=== PATIENT | female | born 1955 | race Caucasian/White ===

== ENCOUNTER 2016-06-03 13:11 | Inpatient (IN) ==
[2016-06-03] MEDS ORDERED: TYLENOL PO PRN (14:25)
[2016-06-03 14:50] LABS: MANUAL DIFF NEEDED? NO
[2016-06-03 14:52] LABS: BASO% 0.3 % (0.0-0.8); EOS# 0.11 X1000 (0.0-0.7); EOS% 0.8 % (0.0-10.0); HEMATOCRIT 38.3 % (37.0-47.0); IMM GRAN# 0.08 X1000 (0.0-0.04); IMM GRAN% 0.6 % (0.0-0.5); LYMPH# 2.32 X1000 (1.2-3.4); LYMPH% 16.9 % (20.5-51.1); MCH 31.2 PG (27-31); MCHC 33.9 g/dL (33-37); MCV 91.8 FL (81-99); MONO# 1.29 X1000 (0.11-0.59); MONO% 9.4 % (1.7-9.3); MPV 11.2 FL (7.4-10.4); PLT 296 X1000 (130-400); RBC 4.17 XMIL (4.2-5.4)
[2016-06-03 15:09] LABS: URINE CULTURE NEEDED? NO; URINE MICRO REVIEW NEEDED? NO; URINE SOURCE CLEAN CATCH
[2016-06-03 15:13] LABS: BILIRUBIN URINE NEGATIVE (NEGATIVE); BLOOD URINE TRACE (NEGATIVE); COLOR YELLOW; GLUCOSE URINE NEGATIVE (NEGATIVE); LEUKOCYTES URINE NEGATIVE (NEGATIVE); NITRITE URINE NEGATIVE (NEGATIVE); PH URINE 5.5; PROTEIN URINE TRACE mg/dL (NEGATIVE); SP GRAVITY URINE 1.027; TURBIDITY URINE HAZY (CLEAR); UROBILINOGEN URINE NORMAL (NORMAL)
[2016-06-03 15:15] LABS: UR EPITHELIAL CELLS <10 /HPF (<10); URINE BACTERIA NEGATIVE /HPF; URINE RBC <10 /HPF (<10); URINE WBC <10 /HPF (<10)
--- NOTE | 2016-06-03 15:23 | HISTORY AND PHYSICAL ---
SUBJECTIVE: Swelling in head and face with headache and chest wall pain for 3 weeks. HISTORY OF PRESENT ILLNESS: The patient is a 60-year-old white female with swelling that was presumed angioneurotic edema. She has been treated as an outpatient with epinephrine, steroids, antihistamines with [facility]. The swelling did go down temporarily but came right back. She has been having headache with this but says she has had these types of headaches in the past when she did not have angioneurotic edema. She has had a little chest pain as well. She is tender to palpation over the chest wall consistent with a costochondritis. It is interesting that she had an infected tooth about 3 weeks ago, was placed on ampicillin, the tooth was pulled. She has not had a reaction to penicillin in the past or any other medication that she is aware of but her mother does have a penicillin allergy. She did not however develop any hives or urticaria with this but just edema. She was not on any regular medications and has not been on an CIRILO inhibitor. She is not sure about whether she has been taking any nonsteroidal anti-inflammatory drugs during that time. She does not feel well. She has a headache this time. She apparently has had some wheezing at home mostly at night. Her reports this and he is a physician. She has also been on some antihistamine both Benadryl and Claritin off and on during the last 3 weeks. She was feeling worse today and earlier this morning felt like her throat was closing off but she feels better now and her oxygen saturation is normal on room air. She has not been sleeping well and I felt that since this had been treated for 3 weeks without success, even though she had responded a little bit to the epinephrine yesterday [facility], that she should be admitted to the hospital especially considering that she has had some bronchospasm and perhaps some laryngeal spasm. I considered doing a CT scan of her neck. She is not having any discomfort right now so we decided to hold off on that. It is interesting that her noticed that just recently she has broken out in just a little angiomas on her chest and she does have these. She has not been known to have any liver disease and she had a chemistry profile a couple of weeks ago before she had an EGD and apparently it was normal. PAST HISTORY: Has had a tonsillectomy and a hysterectomy. She has 4 biological children all in good health. None of them have shown any angioneurotic edema. REVIEW OF SYSTEMS: Neurological: Has been having some headache off and on but has had this before she had angioneurotic edema. Denies seizures, visual problems, hearing problems. Pulmonary: Has had some cough and wheezing especially at night. Has had some chest discomfort that I believe is probably chest wall pain. Cardiovascular: Denies chest pains consistent with cardiac diseases and no heart palpitations, PND, orthopnea. No pedal edema. All the swelling that she has had has been from the waist up. : Has had no problems with urination. Musculoskeletal: Has had some chest wall pain. She is tender over the 2nd intercostal space on the left consistent with a costochondritis. Endocrine: Has had no thyroid problems, diabetes or pituitary problems. Psychiatric: Denies any long-term depression, anxiety. PHYSICAL EXAMINATION: VITAL SIGNS: Temperature is 97.4 degrees Fahrenheit, pulse 75 and regular, respirations 14, blood pressure 122/49, oxygen saturation was 99%. Weight is 173 pounds 8 ounces. Height 5 feet 1 inch tall. HEENT: She is very swollen in her face and neck, not so much in her arms or hands. Even with this swelling though she says she has not had any itching with this. TMs within normal limits. Fundi not seen well. Throat clear. She is missing a lower molar tooth that she had removed recently. NECK: Supple without thyromegaly, lymphadenopathy, or carotid bruits. LUNGS: Clear to auscultation and percussion without rhonchi, rales, or wheezes though she does tell me she has had some wheezing at night. HEART: Regular rate and rhythm without murmurs, gallops, or friction rubs. ABDOMEN: Soft. Active bowel sounds, no organomegaly or tenderness. NEUROLOGICAL: Cranial nerves 2-12 intact grossly. Sensory and motor intact. Reflexes 1+ all. PELVIC EXAM: Deferred. RECTAL EXAM: Deferred. BREAST EXAM: Deferred. INTEGUMENT: Should be noted on integument exam that she does have some spider angiomas on her chest and her tells me that those are new. DIAGNOSTIC DATA: Chest x-ray still pending and of course, if we found anything suspicious there we would do further investigation. IMPRESSION AND PLAN: We are assuming this is angioneurotic edema even though she has not had any itching as the antihistamines have helped at times and it would go down and the epinephrine helped a good bit yesterday but was just temporary. Other causes of edema would be much less likely as they would not necessarily be responsive to epinephrine though we do not have any history of hereditary angioneurotic edema I will do a C1 complement test and function tests on C1 and C4. I will go ahead and start her on IV Solu-Medrol, Vistaril and for her headache I will give her low dose of Dilaudid. I am awaiting lab work. If liver enzymes are elevated so they were more concerned about a liver problem then we will investigate accordingly but she had been seen by a optical glass etcher recently. cc: Shahid Hernadez Jr, MD
[2016-06-03 15:24] LABS: AGAP 11; ALBUMIN 3.9 g/dL (3.5-5.0); ALKALINE PHOSPHATASE 86 U/L (32-104); BUN 23 mg/dL (8-22); CALCIUM 8.1 mg/dL (8.8-10.2); CHLORIDE 95 mmol/L (98-107); COSMO 269; GOT 9 U/L (10-30); GPT 8 U/L (10-36); POTASSIUM 3.7 mmol/L (3.5-5.1); SODIUM 133 mmol/L (136-145); TCO2 27 mmol/L (25-35); TOTAL BILIRUBIN 0.18 mg/dL (0.20-1.00); TOTAL PROTEIN 6.6 g/dL (6.3-8.3)
[2016-06-03] MEDS: SOLU-MEDROL IV SCH ×2 (15:28→23:20)
[2016-06-03] MEDS: DILAUDID IV PRN (15:29)
[2016-06-03 15:53] LABS: SED RATE 12 mm/hr (0-20)
--- NOTE | 2016-06-03 16:45 | Diag Imaging Result Document ---
PROCEDURE NAME: CHEST-PORTABLE - 06/03/2016 CHEST 2 VIEWS: COMPARISON: No comparison exam. FINDINGS: Heart size is normal. There is prominence of the right hilum. There is a questionable nodular opacity at the left mid to upper lung versus artifact related to overlying rib. There is no other consolidation, pleural effusion, or pneumothorax identified. IMPRESSION: 1. Fullness of right hilum. The possibility of mass lesion or adenopathy at this location cannot be excluded. 2. Questionable nodular opacity at mid to upper left lung. 3. CT thorax is recommended for further evaluation.
[2016-06-03] MEDS: HYDROXYZINE PO SCH (17:42)
[2016-06-03] MEDS ORDERED: AYR NASAL SPRAY NAS PRN (22:28)
[2016-06-04] MEDS: SOLU-MEDROL IV SCH ×2 (06:43→18:19)
[2016-06-04] MEDS: DILAUDID IV PRN ×2 (06:49→13:09)
--- NOTE | 2016-06-04 09:24 | Diag Imaging Result Document ---
PROCEDURE NAME: THORAX/ABDOMEN/PELVIS - 06/04/2016 CT CHEST WITH INTRAVENOUS CONTRAST: FINDINGS: There is an irregular mass in the mid left upper lobe measuring 1.7 x 2.4 cm. There are markedly enlarged mediastinal and hilar lymph nodes. There is circumferential compression with narrowing of the right main pulmonary artery. There are small bilateral pleural effusions as well as a small anterior pericardial effusion. The pericardial effusion measures 11 mm anteriorly. The right pleural effusion measures 2.3 cm posteriorly and inferiorly in the midline whereas the left effusion measures 8 mm. No cardiomegaly. No thoracic aortic aneurysm or dissection. There is a calcified granuloma in the left upper lobe and there is a calcified left hilar lymph nodes. No bronchiectasis. No consolidation. There is a small amount of basilar atelectasis. There is compression upon the SVC. IMPRESSION: 1. Left upper lobe mass with mediastinal and hilar adenopathy consistent with a primary malignancy. 2. Small bilateral pleural effusions with a pericardial effusion. 3. Compressed SVC and right main pulmonary artery. A preliminary report was given at 8:59 a.m. PROCEDURE NAME: THORAX/ABDOMEN/PELVIS - 06/04/2016 CT ABDOMEN AND PELVIS WITH INTRAVENOUS CONTRAST: FINDINGS: No focal hepatic lesion. Normal spleen, pancreas, gallbladder, and adrenal glands. Normal enhancement of the kidneys. No hydronephrosis. No aortic aneurysm. No bowel obstruction. No inflammation about the cecum. No abscess. The urinary bladder is moderately distended and appears normal. The uterus has been removed. No pelvic mass. There is a fat-filled left inguinal hernia. No bowel loop within this. There are small mesenteric lymph nodes. IMPRESSION: No abdominal or pelvic metastases. A preliminary report was given at 9:01 p.m. [facility]
[2016-06-04] MEDS: HYDROXYZINE PO SCH (09:53)
--- NOTE | 2016-06-04 11:49 | PROGRESS NOTE ---
DATE: 06/04/2016 SUBJECTIVE: The patient feels about the same. She did sleep a little better yesterday. The swelling has not gotten any better. OBJECTIVE: Vital Signs: Blood pressure is 137/72, respirations 20, pulse 81, temperature 98.6 degrees Fahrenheit. HEENT: She is normocephalic. EOMs intact. PERRLA. Throat clear. Lungs: Fairly clear to auscultation and percussion without rhonchi, rales, or wheezes at this time. Heart: Regular rate and rhythm without murmurs, gallops, or friction rubs. Abdomen: Soft. Active bowel sounds. No organomegaly or tenderness. Neurological: Examination is intact grossly. The patient does still have tremendous swelling of her arms, neck, and face. Laboratory Data: The chest x-ray showed a left upper lobe mass and some fullness in the right hilar area. CT scan was done. CT scan of the abdomen showed no signs of metastatic disease. There is a fat-filled left inguinal hernia present that is asymptomatic. For some reason, the dictation on the chest part of the CT was not done at the same time as the abdominal CT. The called-in report was for a left upper lobe mass and that is about all I have on this information at this time. Hopefully, with a more detailed report, we will know about right hilar fullness. My suspicion is that she has a superior vena caval syndrome and that is why she is not responding to medications with her swelling. There were also other findings that may be indicative of this. Hopefully, the CT scan will provide further information. It should be noted that she is a prior smoker but only quit about a year ago. She was smoking about a half a pack a day. ASSESSMENT: 1. 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 The fact that she responded to some adrenaline as an outpatient would have indicated that maybe this was angioneurotic edema but if she has that, I think she has both problems. I think the bigger problem is probably severe vena caval syndrome. 2. Left upper lobe mass. 3. Right hilar fullness. PLAN: We will get oncology and pulmonology involved. We will give her some Lasix. cc: Shahid Hernadez Jr, MD
[2016-06-04] MEDS: LASIX IV SCH (13:09)
--- NOTE | 2016-06-04 17:06 | CONSULTATION ---
DATE OF CONSULTATION: 06/04/2016 HISTORY OF PRESENT ILLNESS: Patient seen in initial consultation at the request of Dr. Hernadez for SVC syndrome. HISTORY OF PRESENT ILLNESS: Ms. Pro is a 60-year-old, woman who has been having facial swelling, headaches, nighttime wheezing and throat tightness over the last 3 weeks. She was seen in urgent care yesterday and treated for presumed angioedema with epinephrine, steroids, antihistamines with temporary improvement. Her headache is worse if she bends over. Her ear feels like it is going to explode. She has not been sleeping well due to nighttime shortness of breath. PAST MEDICAL HISTORY: Headaches. Facial swelling. Seasonal allergies. Insomnia. PAST SURGICAL HISTORY: Tonsillectomy. Hysterectomy. ALLERGIES: No known drug allergies. MEDICATIONS: Reviewed per chart. FAMILY MEDICAL HISTORY: No family history of angioedema. SOCIAL HISTORY: Patient is . Lives with her . No illicit drug use. The patient has 4 children who are healthy. REVIEW OF SYSTEMS: Pertinent positives and negatives as per HPI. All other review of systems are negative. PHYSICAL EXAMINATION: Vital signs: Temperature 98.6 degrees, pulse 81, respiratory rate 20, blood pressure 137/72, O2 saturation 91% on room air. General: This is a chronically ill- appearing, woman in no acute distress. She has multiple family members at the bedside. Eyes: Sclerae are anicteric. Cardiovascular: Regular rate and rhythm. Normal S1, S2. No murmurs, rubs, or gallops. Pulmonary: Lungs have coarse bilateral breath sounds without wheezes, rales or rhonchi. Gastrointestinal: Abdomen is soft, nontender, nondistended with normoactive bowel sounds. Extremities: No clubbing, cyanosis, or edema. ENT: Facial swelling with jugular venous distention bilaterally noted. Lymphatics: No palpable adenopathy. Neurologic: Alert and oriented x3. No focal deficits. Gait not assessed as the patient is in a hospital bed. LABORATORY DATA: White count 13.7, hemoglobin 13, platelet count 296,000. Sodium 133, calcium 8.1, BUN 23, creatinine 0.7, glucose 83, AST 9, ALT 8, alkaline phosphatase 86. IMAGING: CT chest, abdomen and pelvis showed right hilar fullness with preliminary report showing a 2 cm left upper lobe mass and very large mediastinal nodes near the SVC and right pulmonary artery. ASSESSMENT AND PLAN: 1. Left upper lobe lung mass: I reviewed her CT images myself with suspicion of malignancy causing superior vena cava syndrome. I discussed the findings with the patient and her family today. I have recommended a tissue biopsy for evaluation. Dr. Lyon will see the patient to determine about bronchoscopic biopsy versus CT-guided biopsy given predominantly mediastinal adenopathy. CEA and LDH levels will be sent today. Discussed the differential diagnosis with the patient and her at length. I will see her in the morning to evaluate her after biopsy. 2. Superior vena cava syndrome: I will place her on oxygen at this time. Continue current steroids and diuresis with Lasix. Biopsy and consideration of treatment based on those findings. 3. Headache: Use Dilaudid as needed. Thank you for this consultation and the opportunity to participate in the care of this patient. I will follow along and leave further recommendations as hospital course dictates. cc: MD Shahid Rae Jr, MD
--- NOTE | 2016-06-04 18:46 | CONSULTATION ---
DATE OF CONSULTATION: 06/04/2016 REQUESTING PHYSICIAN: Dr. Shahid Hernadez. REASON FOR CONSULTATION: Left upper lobe nodule with extensive mediastinal and subcarinal adenopathy with superior vena cava syndrome. HISTORY OF PRESENT ILLNESS: Ms. Pro is a 60-year-old white female who has been smoking since a teenager who noted the onset of dysphagia approximately 2 weeks ago. She was evaluated by Dr. Ang who performed an upper endoscopy and a colonoscopy. The patient had polyps removed, but no etiology for her dysphagia was identified. The patient subsequently developed facial swelling and went to an outpatient clinic. It was initially felt that she might be having an allergic reaction, and she had mild symptomatic improvement with epinephrine and steroids. However, her symptoms returned. She was admitted to the hospital by Dr. Shahid Hernadez for additional evaluation and treatment. CT scan of the thorax was performed, which revealed extensive mediastinal and subcarinal adenopathy, along with a nodule in the left upper lobe. Evidence of superior vena cava compression was also noted. A small pericardial effusion is also likely. PAST MEDICAL HISTORY: 1. No known drug allergies. 2. No chronic medications. 3. Status post hysterectomy. 4. Status post tonsillectomy. 5. Status post breast augmentation. 6. Gastroesophageal reflux. SOCIAL HISTORY: She is . Her is a physician. Ongoing tobacco use as per above. FAMILY HISTORY: Noncontributory to current presentation. REVIEW OF SYSTEMS: As noted in the HPI. Otherwise, negative. PHYSICAL EXAMINATION: General: Reveals a healthy-appearing white female with mild, but not severe facial edema noted. Vital signs: Blood pressure 123/82, heart rate 84, respiration rate 20, oxygen saturation 94% on room air. HEENT: Pupils are equal and reactive. Oropharynx is clear. Neck: Supple. Chest: Reveals good air entry bilaterally. There is mild venous dilatation on the anterior chest wall and on the upper abdomen. Cardiac: Regular rate. Normal S1, normal S2. Abdomen: Soft and without hepatosplenomegaly. Extremities: Reveal trace edema in the hands. No edema in the feet. LABORATORIES: CT scan of the thorax as per HPI. She has small bilateral effusions. Left upper lobe nodule. Small pericardial thickening versus effusion. Extensive mediastinal/sub- carinal adenopathy. White blood count 13.7, hemoglobin 13, platelet count 296,000. Sodium 133, potassium 3.7, chloride 95, bicarbonate 24, BUN 23, creatinine 0.7. IMPRESSION: A 60-year-old with history of tobacco use, who presents with facial edema, compression of the superior vena cava consistent with superior vena cava syndrome, small pericardial effusion, bilateral pleural effusions, left upper lobe nodule with extensive mediastinal and subcarinal adenopathy. Presentation is worrisome for a bronchogenic carcinoma. The nodule in the left upper lobe would be most consistent with a non-small cell carcinoma, but the extensive mediastinal and subcarinal involvement would favor a small-cell carcinoma. The patient requires tissue for diagnoses. The tissue could be obtained with a CT-guided biopsy, mediastinoscopy or bronchoscopy with Omalley needle biopsies. I believe the diagnosis can be secured with a Omalley needle aspirate. All of the options along with risk and benefits were discussed with the patient. Patient and family agree to pursue bronchoscopy with Omalley needle aspirates. RECOMMENDATIONS: 1. Nothing per oral after midnight. 2. Bronchoscopy with Omalley needle aspiration of the paratracheal and subcarinal lymph node/mass tomorrow morning. cc: MD Shahid Chaudhary Jr, MD Khurshid Yousuf, MD Heather Shah, MD
[2016-06-04] MEDS: RESTORIL PO PRN (21:15)
[2016-06-05] MEDS: SOLU-MEDROL IV SCH ×3 (02:53→17:40)
[2016-06-05 05:49] LABS: INR 0.96; PROTIME 10.1 Seconds (9.2-11.7)
[2016-06-05 06:01] LABS: AGAP 13; BUN 26 mg/dL (8-22); CALCIUM 9.6 mg/dL (8.8-10.2); CHLORIDE 104 mmol/L (98-107); COSMO 291; LDH 175 U/L (135-214); POTASSIUM 3.8 mmol/L (3.5-5.1); SODIUM 142 mmol/L (136-145); TCO2 25 mmol/L (25-35)
--- NOTE | 2016-06-05 06:32 | EKG Report ---
Test Performed on : 06/03/2016 2:44:22 PM Test Reason : SOB Blood Pressure : / mmHG Vent. Rate : 072 BPM Atrial Rate : 072 BPM P-R Int : 146 ms QRS Dur : 078 ms QT Int : 402 ms P-R-T Axes : 059 010 071 degrees QTc Int : 440 ms Normal sinus rhythm. Low voltage QRS Borderline ECG No previous ECGs available Confirmed by Gerald GREEN, Jacky Gonzalez ([id number]) on 06/05/2016 8:09:44 AM
[2016-06-05] MEDS: LASIX IV SCH (09:27)
--- NOTE | 2016-06-05 10:02 | PROGRESS NOTE ---
DATE: 06/05/2016 SUBJECTIVE: The patient still feels a little short of breath. She has actually gained a little bit more fluid weight even though she has been diuresing with the Lasix. She is to have her bronchoscopy later this morning. OBJECTIVE: Vital Signs: Blood pressure is 133/53, respirations 18, pulse 79, temperature 98.2 degrees Fahrenheit. Oxygen saturation is 96% on room air. Weight is 175 pounds 6.4 ounces. She was 173 pounds and 8 ounces on 06/03/2016. She is on steroids and she has superior vena caval syndrome. HEENT: She is normocephalic except for the swelling in her face, neck, and arms. Lungs: Sound fairly clear to auscultation and percussion without rhonchi, rales, or wheezes at this time. Heart: Regular rate rhythm without murmurs, gallops, or friction rubs. EKG was essentially normal. Abdomen: Soft. Active bowel sounds. No organomegaly or tenderness. Neurological: Examination is intact grossly. ASSESSMENT: 1. Superior vena caval syndrome. 2. Lymphadenopathy versus tumor in the right hilar area and pulmonary nodule in the left upper lobe. PLAN: Bronchoscopy today. We will continue steroids and diuretics. cc: Shahid Hernadez Jr, MD
[2016-06-05] MEDS ORDERED: XYLOCAINE 2% VISCOUS ONE (10:29)
[2016-06-05] MEDS ORDERED: EPINEPHRINE ONE (10:29)
[2016-06-05] MEDS ORDERED: XYLOCAINE 1% ONE (10:29)
[2016-06-05] MEDS ORDERED: XYLOCAINE 2% ONE (10:31)
[2016-06-05] MEDS ORDERED: SODIUM CHLORIDE 0.9% 20 ML ONE (10:31)
[2016-06-05] MEDS ORDERED: DIPRIVAN 1% ONE (11:46)
[2016-06-05] MEDS ORDERED: XYLOCAINE-MPF 2% ONE (11:48)
[2016-06-05] MEDS ORDERED: ANESTHESIA PB SET 88 IN 5742 ONE (11:48)
[2016-06-05] MEDS ORDERED: LR 1,000 ML ONE (11:48)
[2016-06-05] MEDS ORDERED: EXTENSION SET 32 IN 4522 ONE (11:48)
--- NOTE | 2016-06-05 14:26 | OPERATIVE NOTE ---
PROCEDURE DATE: PROCEDURE PERFORMED: Bronchoscopy with endobronchial biopsies of the right mainstem, washings of the trachea, Omalley needle aspirate from the trachea, and Omalley needle aspirate from the subcarinal region. SURGEON: Houston Lyon MD CLINICAL INDICATIONS: This is a 60-year-old with left upper lobe nodule with extensive mediastinal/subcarinal adenopathy. DESCRIPTION OF PROCEDURE: After informed consent was obtained and a time-out was performed, bronchoscopy was performed in operating room #8. Topical anesthesia had been achieved with viscous lidocaine to the right nostril with 2% lidocaine instilled above the vocal cords and 1% lidocaine instilled below the vocal cords during the procedure. Sedation was obtained by [facility] who provided monitored anesthesia care. When sedation and topical anesthesia were achieved, the bronchoscope was advanced through the right nostril to the level of the vocal cords. There was a small, benign-appearing polyp on the left vocal cord anteriorly. Image was obtained. The bronchoscope was advanced through the vocal cords into the trachea. No tracheal lesions were identified. The bronchoscope was advanced toward the adan. There was vascular dilation of the adan the adan had a splayed appearance. The left mainstem, left upper lobe, lingula, and left lower lobe were patent and without lesions. The bronchoscope was directed to the right side. Shortly after the takeoff of the right mainstem, tumor could be seen on the anterior surface. This tumor extended throughout the length of the right mainstem to the entrance of the adan and partially affected the air flow divider to the right upper lobe. Video image was obtained. The bronchus intermedius, right middle lobe, and right lower lobe were patent and without lesions. The bronchoscope was retracted back to the proximal right mainstem. Multiple biopsies were taken from the anterior surface of the right middle lobe and placed in the right middle lobe. Specimen container. The bronchoscope was retracted back to the trachea. Two aspirates were performed through the wall of the trachea in the 2 o'clock position using the Omalley technique. Only slides were obtained. Two Omalley aspirates were performed from the adan. Only slides were obtained. IMPRESSION: 1. Small, benign-appearing polyp on the left vocal cord. 2. 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 3. Status post endobronchial biopsies of the right mainstem. 4. Status post Omalley needle aspirate from the trachea x2. 5. Status post Omalley needle aspirate from the adan x2. 6. Washing of the trachea. The patient tolerated the procedure without difficulty. cc: MD Shahid Chaudhary Jr, MD Heather Shah, MD
[2016-06-05] MEDS: RESTORIL PO PRN (22:41)
[2016-06-06] MEDS: SOLU-MEDROL IV SCH ×3 (02:15→17:27)
[2016-06-06 06:05] LABS: AGAP 12; BUN 31 mg/dL (8-22); CALCIUM 9.4 mg/dL (8.8-10.2); CHLORIDE 100 mmol/L (98-107); COSMO 292; POTASSIUM 4.3 mmol/L (3.5-5.1); SODIUM 142 mmol/L (136-145); TCO2 30 mmol/L (25-35)
[2016-06-06] MEDS: LASIX IV SCH ×2 (09:26→20:15)
--- NOTE | 2016-06-06 09:39 | PROGRESS NOTE ---
DATE: 06/06/2016 SUBJECTIVE: The patient says she feels a little bit better. She says her daughters watched her sleep last night and she seemed to sleep a little better and did have quite as much struggle breathing. With her venocaval syndrome and all the swelling, one would also have to worry a little bit about sleep apnea with this. OBJECTIVE: Vital Signs: Temperature is 97.3 degrees Fahrenheit, pulse 77, respirations 18, blood pressure 129/89, her O2 saturation on room air is 98%. Weight has gone up a little bit more to 175 pounds and 9.6 ounces. HEENT: She is essentially normal except for the swelling in her chest, arms, neck, and face. Lungs: Fairly clear to auscultation and percussion without rhonchi, rales, or wheezes. Heart: Regular rate rhythm without murmurs, gallops, or friction rubs. Abdomen: Soft. Active bowel sounds. No organomegaly or tenderness. Neurological: Examination intact grossly. Having no headache now. ASSESSMENT: 1. Masses in chest. 2. Venocaval syndrome. 3. Shortness of breath, improving. PLAN: Continue care with Lasix. It should be noted that CEA is 11.2, awaiting pathology report. cc: Shahid Hernadez Jr, MD
--- NOTE | 2016-06-06 16:58 | Diag Imaging Result Document ---
PROCEDURE NAME: MRI BRAIN W W/O CONTRAST - 06/06/2016 MRI BRAIN WITHOUT AND WITH CONTRAST: FINDINGS: Images are obtained prior to and following Omniscan administration. No comparison exam. There is a 1.1 cm ring-enhancing lesion in white matter of the left frontal lobe. There is mild surrounding edema. This is compatible with a metastatic lesion. There is no other enhancing lesion identified. There is no mass effect identified on nearby anterior horn of the left lateral ventricle. There is no midline shift. There is no other substantial abnormality identified, possible minimal chronic microvascular ischemic change. IMPRESSION: Solitary 1.1 cm metastatic lesion at left frontal lobe white matter. There is mild surrounding edema, but there is no substantial mass effect on the ventricular system.
[2016-06-06] MEDS: RESTORIL PO PRN (22:16)
[2016-06-07] MEDS: SOLU-MEDROL IV SCH ×5 (05:45→22:16)
[2016-06-07 07:12] LABS: AGAP 14; ALBUMIN 4.1 g/dL (3.5-5.0); ALKALINE PHOSPHATASE 79 U/L (32-104); BASO% 0.1 % (0.0-0.8); BUN 34 mg/dL (8-22); CHLORIDE 95 mmol/L (98-107); COSMO 291; GOT 14 U/L (10-30); GPT 20 U/L (10-36); HEMATOCRIT 39.6 % (37.0-47.0); HEMOGLOBIN 13.2 g/dL (12.0-16.0); IMM GRAN# 0.13 X1000 (0.0-0.04); IMM GRAN% 0.8 % (0.0-0.5); LYMPH# 1.03 X1000 (1.2-3.4); MANUAL DIFF NEEDED? YES; MCH 30.6 PG (27-31); MCHC 33.3 g/dL (33-37); MCV 91.7 FL (81-99); MONO# 0.78 X1000 (0.11-0.59); MONO% 4.6 % (1.7-9.3); MPV 11.2 FL (7.4-10.4); NEUT% 88.5 % (42.2-75.2); PLT 300 X1000 (130-400); POTASSIUM 3.6 mmol/L (3.5-5.1); RBC 4.32 XMIL (4.2-5.4); SODIUM 141 mmol/L (136-145); TCO2 32 mmol/L (25-35); TOTAL PROTEIN 6.9 g/dL (6.3-8.3); URIC ACID 4.7 mg/dL (2.4-5.7)
[2016-06-07 08:30] LABS: LYMPHS 2 % (21-51); MONO 10 % (1-9)
[2016-06-07] MEDS: LASIX IV SCH ×2 (08:54→22:14)
--- NOTE | 2016-06-07 09:04 | PROGRESS NOTE ---
DATE: 06/07/2016 SUBJECTIVE: The patient still had a little shortness of breath off and on. She has had no headache. She thinks that she might be getting a urinary tract infection. OBJECTIVE: Vital Signs: Temperature is 97.6 degrees Fahrenheit, pulse 85 and regular, respirations 17 and unlabored, blood pressure 154/74. Weight is down a little bit to 169 pounds 8 ounces. White count is up a little bit at 17,000, but she is on steroids. HEENT: She is normocephalic. EOM's Intact PERRLA. Throat clear. Patient does still have a good bit of swelling around the upper extremities, neck, face and head. Lungs: Clear auscultation and percussion without rhonchi, rales, or wheezes. Heart: Regular rate and rhythm without murmurs, gallops, or friction rubs. Abdomen: Soft. Active bowel sounds. No organomegaly or tenderness. Neurological exam: Cranial nerves 2 through 12 intact grossly. Sensory and motor intact. Reflexes 1+ all. DIAGNOSTIC DATA: MRI scan of the brain shows a 1.1 cm lesion in the left frontal area with edema around it, most consistent with metastasis. ASSESSMENT: 1. Small cell carcinoma of the lung. Studies are still being done to make sure that there is not a lymphoma here, but most likely this is a small cell carcinoma. 2. Superior vena caval syndrome. 3. Brain metastasis. 4. Dysuria. PLAN: We will get urinalysis. Will probably start on chemotherapy later today. Dr. Orellana, radiation oncology, was in the room with me when I examined the patient this morning and was to talk with her about radiation treatment for the mediastinal lesion to help relieve this superior vena caval syndrome. cc: Shahid Hernadez Jr, MD
[2016-06-07 09:35] LABS: URINE CULTURE NEEDED? NO; URINE SOURCE CLEAN CATCH
[2016-06-07 09:42] LABS: BILIRUBIN URINE NEGATIVE (NEGATIVE); BLOOD URINE NEGATIVE (NEGATIVE); COLOR YELLOW; GLUCOSE URINE NEGATIVE (NEGATIVE); LEUKOCYTES URINE NEGATIVE (NEGATIVE); NITRITE URINE NEGATIVE (NEGATIVE); PROTEIN URINE TRACE mg/dL (NEGATIVE); SP GRAVITY URINE 1.029; TURBIDITY URINE CLEAR (CLEAR); URINE MICRO REVIEW NEEDED? YES; UROBILINOGEN URINE NORMAL (NORMAL)
[2016-06-07 09:46] LABS: UR EPITHELIAL CELLS <10 /HPF (<10); URINE BACTERIA NEGATIVE /HPF; URINE RBC <10 /HPF (<10); URINE WBC <10 /HPF (<10)
[2016-06-07 10:17] LABS: URINE CRYSTALS NONE SEEN
[2016-06-07] MEDS: ZYLOPRIM PO SCH ×2 (13:59→22:27)
[2016-06-07] MEDS: DILAUDID IV PRN ×2 (15:57→19:20)
[2016-06-07] MEDS ORDERED: COMPAZINE PO PRN (16:00)
[2016-06-07] MEDS ORDERED: NS + KCL 20 MEQ 1,000 ML IV ONE (16:00)
[2016-06-07] MEDS ORDERED: ATIVAN PO PRN (16:01)
[2016-06-07] MEDS ORDERED: TYLENOL PO PRN (16:02)
[2016-06-07] MEDS ORDERED: EMEND 150 MG in NS 145 ML IV ONE (16:30)
[2016-06-07] MEDS ORDERED: ALOXI IV ONE (16:30)
[2016-06-07] MEDS ORDERED: DECADRON IV ONE (16:30)
[2016-06-07] MEDS: ATIVAN IV PRN ×2 (17:00→23:42)
[2016-06-07] MEDS ORDERED: MAGNESIUM SULFATE IV ONE (17:30)
[2016-06-07] MEDS ORDERED: NS IV ONE ×2 (17:30→18:30)
[2016-06-07] MEDS ORDERED: [UNRECOGNIZED DRUG - OTHER] IV ONE (18:30)
[2016-06-07] MEDS: ZOFRAN 16 MG in NS 50 ML IV SCH (19:00)
[2016-06-07] MEDS ORDERED: NS IV SCH (19:30)
[2016-06-07] MEDS ORDERED: VEPESID IV SCH (19:30)
--- NOTE | 2016-06-07 21:13 | PROGRESS NOTE ---
DATE: 06/07/2016 SUBJECTIVE: Ms. Pro reports fatigue today. She denies headache. She feels some neck fullness with choking sensation with swallowing. She is having no dyspnea. OBJECTIVE: Vital Signs: Blood pressure 151/74, heart rate 85, respiration rate 17, oxygen saturation 96% on room air. Afebrile. HEENT: Mild facial swelling. Oropharynx is clear. Neck: Has generalized fullness without discrete adenopathy. Chest: Reveals mild prolonged expiratory phase. Cardiac: Regular rate. Abdomen: Soft without hepatosplenomegaly. Extremities: Reveal trace edema. LABORATORIES: MRI of the brain yesterday reveals 1.1 cm metastatic lesion in the left frontal lobe. Final pathology report on lung specimens are pending. Preliminary report is small-cell carcinoma. IMPRESSION: Small cell carcinoma with evidence of metastasis to the brain. RECOMMENDATIONS: 1. Agree with initiation of chemotherapy as per Oncology. 2. Continue steroids. 3. Additional recommendations pending hospital course. cc: MD Shahid Chaudhary Jr, MD
[2016-06-08] MEDS: SOLU-MEDROL IV SCH ×4 (05:33→21:27)
[2016-06-08 07:12] LABS: BASO% 0.1 % (0.0-0.8); HEMATOCRIT 37.7 % (37.0-47.0); HEMOGLOBIN 12.5 g/dL (12.0-16.0); IMM GRAN# 0.13 X1000 (0.0-0.04); LYMPH# 0.78 X1000 (1.2-3.4); LYMPH% 5.7 % (20.5-51.1); MANUAL DIFF NEEDED? YES; MCH 30.5 PG (27-31); MCHC 33.2 g/dL (33-37); MONO# 0.57 X1000 (0.11-0.59); MONO% 4.2 % (1.7-9.3); MPV 11.2 FL (7.4-10.4); PLT 269 X1000 (130-400)
[2016-06-08 07:21] LABS: AGAP 13; ALBUMIN 3.8 g/dL (3.5-5.0); ALKALINE PHOSPHATASE 72 U/L (32-104); BUN 33 mg/dL (8-22); CALCIUM 8.4 mg/dL (8.8-10.2); CHLORIDE 100 mmol/L (98-107); COSMO 287; GOT 24 U/L (10-30); GPT 31 U/L (10-36); POTASSIUM 3.7 mmol/L (3.5-5.1); SODIUM 139 mmol/L (136-145); TCO2 26 mmol/L (25-35); TOTAL BILIRUBIN 0.42 mg/dL (0.20-1.00); TOTAL PROTEIN 6.4 g/dL (6.3-8.3)
[2016-06-08 08:10] LABS: LYMPHS 2 % (21-51)
--- NOTE | 2016-06-08 09:34 | PROGRESS NOTE ---
DATE: 06/08/2016 SUBJECTIVE: The patient has more swelling, a little bit more short of breath. She had a lot of low volume with her chemotherapy yesterday. She will be hopefully getting another round of chemotherapy today and radiation therapy. She did gain up to 189 pounds and 6.4 ounces. She does look more swollen, though I am not sure that she has 20 more pounds of fluid on her. That is how she weighed today. She is a little short of breath. OBJECTIVE: Vital Signs: Blood pressure is 139/65, respirations 16, pulse 81. HEENT: She is normocephalic. Extraocular movements intact. Pupils equal, round, and reactive to light and accommodation. Throat clear. She does have a good bit of edema. Lungs: Clear auscultation and percussion without rhonchi, rales, or wheezes. Heart: Regular rate and rhythm without murmurs, gallops, or friction rubs. Abdomen: Soft. Active bowel sounds. No organomegaly or tenderness. Neurological Examination: Intact grossly. ASSESSMENT: 1. Superior vena cava syndrome. 2. Primary lung cancer. 3. Brain metastasis. 4. Edema. Of note, the patient thought she was getting urinary tract infection yesterday, but does not have symptoms today. Her urinalysis was clear. PLAN: We will continue care. cc: Shahid Hernadez Jr, MD
[2016-06-08] MEDS: ZYLOPRIM PO SCH ×2 (09:35→20:46)
[2016-06-08] MEDS: LASIX IV SCH ×2 (09:36→20:45)
[2016-06-08] MEDS: DILAUDID IV PRN ×3 (14:17→18:43)
[2016-06-08] MEDS ORDERED: LASIX IV ONE ×2 (15:24→21:26)
[2016-06-08] MEDS: DECADRON IV SCH (16:24)
[2016-06-08] MEDS: ATIVAN IV PRN (16:30)
[2016-06-08] MEDS: NS + KCL 20 MEQ 1,000 ML IV SCH (16:36)
[2016-06-08] MEDS: ZOFRAN 16 MG in NS 50 ML IV SCH (18:25)
[2016-06-08] MEDS: NS IV SCH (18:46)
[2016-06-08] MEDS: VEPESID IV SCH (18:46)
[2016-06-08] MEDS ORDERED: SOLU-MEDROL IV SCH (21:23)
[2016-06-08 22:19] LABS: INR 1.04
[2016-06-09] MEDS: SOLU-MEDROL IV SCH (05:12)
[2016-06-09 06:41] LABS: BASO% 0.1 % (0.0-0.8); HEMATOCRIT 37.9 % (37.0-47.0); HEMOGLOBIN 12.6 g/dL (12.0-16.0); IMM GRAN# 0.08 X1000 (0.0-0.04); IMM GRAN% 0.6 % (0.0-0.5); LYMPH# 0.62 X1000 (1.2-3.4); LYMPH% 4.4 % (20.5-51.1); MANUAL DIFF NEEDED? YES; MCH 30.8 PG (27-31); MCHC 33.2 g/dL (33-37); MCV 92.7 FL (81-99); MONO# 0.62 X1000 (0.11-0.59); MONO% 4.4 % (1.7-9.3); MPV 11.1 FL (7.4-10.4); NEUT% 90.5 % (42.2-75.2); PLT 241 X1000 (130-400); RBC 4.09 XMIL (4.2-5.4)
[2016-06-09 07:25] LABS: LYMPHS 8 % (21-51)
[2016-06-09 07:45] LABS: ALBUMIN 3.9 g/dL (3.5-5.0); CALCIUM 8.5 mg/dL (8.8-10.2); POTASSIUM 3.6 mmol/L (3.5-5.1); TOTAL BILIRUBIN 0.43 mg/dL (0.20-1.00); TOTAL PROTEIN 6.6 g/dL (6.3-8.3)
[2016-06-09] MEDS: LASIX IV SCH ×2 (08:33→21:31)
[2016-06-09] MEDS: ZYLOPRIM PO SCH ×2 (08:34→21:30)
[2016-06-09] MEDS: DILAUDID IV PRN (08:36)
[2016-06-09] MEDS ORDERED: NS 250 ML ONE (09:02)
--- NOTE | 2016-06-09 09:48 | PROGRESS NOTE ---
DATE: 06/09/2016 SUBJECTIVE: The patient is still swollen. She has had some headache. We are going to put a PICC line in today. I did increase her Dilaudid a little bit. OBJECTIVE: Vital Signs: Weight is 188 pounds 11 ounces. Temperature is 96.6 degrees Fahrenheit. Pulse is 71 and regular, respirations 16, blood pressure 144/83. HEENT: She is normocephalic. Extraocular movements intact. PERRLA. Throat clear. Lungs: Clear to auscultation and percussion without rhonchi, rales, or wheezes. Heart: Regular rate and rhythm without murmurs, gallops, or friction rubs. Abdomen: Soft. Active bowel sounds. No organomegaly or tenderness. Neurological: Intact grossly. The patient still does have a massive edema around head and neck and face. Her usual body weight is around 125 pounds. ASSESSMENT: 1. Small cell carcinoma of the lung. 2. Brain metastasis, left frontal lobe. 3. Superior vena caval syndrome. PLAN: Continue treatment. She is getting chemotherapy and radiation. cc: Shahid Hernadez Jr, MD
[2016-06-09 11:52] LABS: MAGNESIUM 2.8 mg/dL (1.5-2.7); URIC ACID 3.9 mg/dL (2.4-5.7)
[2016-06-09] MEDS: ZOFRAN ODT PO PRN (14:30)
[2016-06-09] MEDS: NS + KCL 20 MEQ 1,000 ML IV SCH (16:19)
[2016-06-09] MEDS: DECADRON IV SCH (16:24)
[2016-06-09] MEDS: ZOFRAN 16 MG in NS 50 ML IV SCH (17:50)
[2016-06-09] MEDS: VEPESID IV SCH (18:16)
[2016-06-09] MEDS: NS IV SCH (18:16)
[2016-06-09] MEDS: ATIVAN IV PRN (18:19)
[2016-06-10 07:16] LABS: HEMATOCRIT 36.4 % (37.0-47.0); HEMOGLOBIN 12.2 g/dL (12.0-16.0); IMM GRAN# 0.05 X1000 (0.0-0.04); IMM GRAN% 0.4 % (0.0-0.5); LYMPH# 0.38 X1000 (1.2-3.4); LYMPH% 2.7 % (20.5-51.1); MANUAL DIFF NEEDED? YES; MCH 30.7 PG (27-31); MCHC 33.5 g/dL (33-37); MCV 91.5 FL (81-99); MONO% 2.8 % (1.7-9.3); MPV 11.4 FL (7.4-10.4); NEUT% 94.1 % (42.2-75.2); PLT 214 X1000 (130-400); RBC 3.98 XMIL (4.2-5.4)
[2016-06-10 07:22] LABS: BANDS 2 % (0-1); LYMPHS 2 % (21-51); MONO 2 % (1-9)
[2016-06-10 07:33] LABS: MAGNESIUM 2.7 mg/dL (1.5-2.7)
[2016-06-10 07:40] LABS: ALBUMIN 3.8 g/dL (3.5-5.0); CALCIUM 8.4 mg/dL (8.8-10.2); POTASSIUM 3.7 mmol/L (3.5-5.1); TOTAL BILIRUBIN 0.47 mg/dL (0.20-1.00); TOTAL PROTEIN 6.3 g/dL (6.3-8.3)
[2016-06-10 07:51] LABS: URIC ACID 3.9 mg/dL (2.4-5.7)
[2016-06-10] MEDS: LASIX IV SCH ×2 (08:45→22:49)
[2016-06-10] MEDS: ZYLOPRIM PO SCH ×2 (08:45→22:49)
[2016-06-10] MEDS: DILAUDID IV PRN ×2 (11:25→17:14)
--- NOTE | 2016-06-10 11:39 | PROGRESS NOTE ---
DATE: 06/10/2016 SUBJECTIVE: The patient says she is still swollen. She has noticed it is a little difficult to swallow. She says it is scratchy esophagus when food goes down. She would like to try a soft diet. OBJECTIVE: Blood pressure is 131/76, respirations 20, pulse 85, temperature 96.5 degrees Fahrenheit. Weight was listed as 191 pounds 11 ounces but had found out that the weights have been somewhat inconsistent as she is getting bed weights and sometimes she is lying down, sometimes she is not. Sometimes she has pillows on the bad and she said that 1 day she even had her child sitting on the bed with her. We will have her get up and get more accurate weights. Patient does appear very swollen however. HEENT: Very swollen head and neck, upper extremities, face. Lungs: Clear to auscultation and percussion without rhonchi, rales, or wheezes. Heart: Regular rate and rhythm without murmurs, gallops, or friction rubs. Abdomen: Soft. Active bowel sounds. No organomegaly or tenderness. Neurological: Intact grossly. ASSESSMENT: 1. Small cell carcinoma of lungs with superior vena caval syndrome. 2. Metastasis to left frontal lobe. 3. Edema. PLAN: Continue support. The patient has finished her chemotherapy for this round and is scheduled for radiation therapy again on Sunday. However she is so swollen and no way we would consider sending her home. We ended up placing a PICC line. I am going to watch until we know her breathing is better. Yesterday she did have an oxygen saturation down to 86%. It is 95% this morning but had been down to 90% at one other check. I think with all this swelling and the superior vena caval syndrome that we should continue to watch and support. cc: Shahid Hernadez Jr, MD
[2016-06-10] MEDS: PRILOSEC PO SCH (22:48)
[2016-06-10] MEDS: ATIVAN IV PRN (22:49)
[2016-06-11] MEDS: ZOFRAN ODT PO PRN (06:12)
[2016-06-11 08:15] LABS: AGAP 15; ALBUMIN 3.6 g/dL (3.5-5.0); ALKALINE PHOSPHATASE 63 U/L (32-104); BUN 48 mg/dL (8-22); CALCIUM 8.6 mg/dL (8.8-10.2); CHLORIDE 91 mmol/L (98-107); COSMO 287; GOT 19 U/L (10-30); GPT 26 U/L (10-36); POTASSIUM 3.2 mmol/L (3.5-5.1); SODIUM 137 mmol/L (136-145); TCO2 31 mmol/L (25-35); TOTAL BILIRUBIN 0.71 mg/dL (0.20-1.00)
[2016-06-11 08:16] LABS: MAGNESIUM 2.5 mg/dL (1.5-2.7); URIC ACID 3.6 mg/dL (2.4-5.7)
[2016-06-11] MEDS: LASIX IV SCH ×2 (10:18→20:29)
[2016-06-11] MEDS: ZYLOPRIM PO SCH ×2 (10:19→20:30)
[2016-06-11] MEDS: PRILOSEC PO SCH ×2 (10:19→20:30)
[2016-06-11] MEDS ORDERED: POTASSIUM CHLORIDE 20% LIQUID PO SCH (11:00)
--- NOTE | 2016-06-11 12:39 | PROGRESS NOTE ---
DATE: 06/11/2016 SUBJECTIVE: The patient says she is feeling a little bit better. She still has a little heartburn but we started her on Prilosec. Her swelling is a little bit better. Her weight is down to 165 pounds 3.2 ounces and the edema does look better. OBJECTIVE: Vital signs: Temperature is 97.4 degrees Fahrenheit, pulse 70, respirations 20, blood pressure 117/53. HEENT: She has less edema in her face but there is still a good bit there. Her usual weight is around 125 pounds. She says she still has trouble swallowing large tablets. Neck: Supple. Lungs: Clear to auscultation and percussion without rhonchi, rales, or wheezes. Heart: Regular rate rhythm without murmurs, gallops, or friction rubs. Abdomen: Soft. Active bowel sounds. No organomegaly or tenderness. Neurological examination: Cranial nerves 2 through 12 intact grossly. Sensory and motor intact. Reflexes 1+ all. ASSESSMENT: 1. Small cell carcinoma of the lung. 2. Superior vena cava syndrome. 3. Left frontal lobe metastasis. 4. Hypokalemia with a potassium of 3.2. PLAN: We will continue her here in the hospital until we get her swallowing better and her electrolytes controlled. Will add 40 mEq of potassium to her regimen daily. Note, that her fluid balance is -2600 mL in the last 24 hours. Patient will get radiation therapy again tomorrow. cc: Shahid Hernadez Jr, MD
[2016-06-11] MEDS: KLOR-CON PO SCH ×2 (15:50→20:30)
[2016-06-12 07:28] LABS: ALBUMIN 3.7 g/dL (3.5-5.0); CALCIUM 8.9 mg/dL (8.8-10.2); POTASSIUM 3.3 mmol/L (3.5-5.1); TOTAL BILIRUBIN 0.66 mg/dL (0.20-1.00)
[2016-06-12] MEDS ORDERED: SALINE LOCK IV FLUID XX ONE (08:53)
--- NOTE | 2016-06-12 09:18 | PROGRESS NOTE ---
DATE: 06/12/2016 SUBJECTIVE: The patient is feeling better. Some of the swelling has gone down in her face now. OBJECTIVE: Vital Signs: Blood pressure 110/62, respirations 20, pulse 82 and regular, temperature 98 degrees Fahrenheit. Weight is 162 pounds 6.4 ounces. HEENT: She does show less edema in her face, though there is still some there. Neck: Supple. Lungs: Clear to auscultation and percussion without rhonchi, rales, or wheezes. Heart: Regular rate and rhythm without murmurs, gallops, or friction rubs. Abdomen: Soft. Active bowel sounds. No organomegaly or tenderness. Neurologic: Exam intact grossly. Extremities: The patient does have some swelling in her left arm. DIAGNOSTIC DATA: Venous flow studies show that she has a DVT in the left arm and superficial clots around her PICC line. We are going to have to stop the PICC line and put in a peripheral line, start her on blood thinners. ASSESSMENT: 1. Small cell carcinoma of the lung. 2. Superior vena caval syndrome. 3. Metastasis to left frontal area. 4. Deep vein thrombosis of left upper extremity. 5. Hypokalemia with a potassium of 3.3. PLAN: We will start the blood thinners as above. cc: Shahid Hernadez Jr, MD
[2016-06-12] MEDS: LASIX IV SCH ×2 (11:43→21:58)
[2016-06-12] MEDS: KLOR-CON PO SCH ×2 (11:43→21:58)
[2016-06-12] MEDS: PRILOSEC PO SCH ×2 (11:44→21:58)
[2016-06-12] MEDS: ZYLOPRIM PO SCH ×2 (11:45→21:58)
[2016-06-12] MEDS: LOVENOX SUBQ SCH ×2 (11:45→21:58)
[2016-06-12 12:36] LABS: BASO% 0.1 % (0.0-0.8); EOS# 0.03 X1000 (0.0-0.7); EOS% 0.2 % (0.0-10.0); HEMATOCRIT 38.2 % (37.0-47.0); HEMOGLOBIN 12.9 g/dL (12.0-16.0); IMM GRAN# 0.04 X1000 (0.0-0.04); IMM GRAN% 0.3 % (0.0-0.5); LYMPH# 0.52 X1000 (1.2-3.4); LYMPH% 3.9 % (20.5-51.1); MANUAL DIFF NEEDED? YES; MCH 30.7 PG (27-31); MCHC 33.8 g/dL (33-37); MONO# 0.01 X1000 (0.11-0.59); MONO% 0.1 % (1.7-9.3); MPV 11.3 FL (7.4-10.4); NEUT% 95.4 % (42.2-75.2); PLT 157 X1000 (130-400)
[2016-06-12 13:06] LABS: EOS 1 % (1-10); LYMPHS 4 % (21-51); MONO 1 % (1-9)
[2016-06-13] MEDS: PRILOSEC PO SCH (06:13)
[2016-06-13 06:45] LABS: AGAP 12; ALBUMIN 3.5 g/dL (3.5-5.0); ALKALINE PHOSPHATASE 63 U/L (32-104); BUN 30 mg/dL (8-22); CALCIUM 8.6 mg/dL (8.8-10.2); CHLORIDE 88 mmol/L (98-107); COSMO 274; GOT 25 U/L (10-30); GPT 25 U/L (10-36); POTASSIUM 3.1 mmol/L (3.5-5.1); SODIUM 134 mmol/L (136-145); TCO2 34 mmol/L (25-35); TOTAL BILIRUBIN 0.96 mg/dL (0.20-1.00); TOTAL PROTEIN 6.1 g/dL (6.3-8.3)
[2016-06-13 06:57] VITALS: BP 121/51
[2016-06-13] MEDS: KLOR-CON PO SCH (08:50)
[2016-06-13] MEDS: ZYLOPRIM PO SCH (08:51)
[2016-06-13] MEDS: LASIX IV SCH ×2 (08:51→09:00)
[2016-06-13] MEDS: LOVENOX SUBQ SCH ×2 (08:51→09:00)
--- NOTE | 2016-06-13 13:30 | Extremity Venous Study ---
PROCEDURE NAME: Venous U/S Left Arm - 06/10/2016 REFERRING PHYSICIAN: Dr. Hernadez. DESCRIPTION: The patient has a PICC line in the left upper arm. The hand and the left arm is swollen. The left arm is imaged. The right subclavian vein is imaged for comparison purposes. The internal jugular, subclavian, axillary, brachial, basilic, and cephalic veins are imaged. There is incomplete compressibility of the subclavian, axillary, and basilic vein. There appears to be some echogenic material around the PICC line. INTERPRETATION: Deep venous thrombosis involving the left subclavian, axillary, and basilic veins. cc: MD Shahid Renee Jr, MD
--- NOTE | 2016-06-13 16:40 | DISCHARGE SUMMARY ---
ADMISSION DATE: 06/03/2016 DISCHARGE DATE: 06/13/2016 FINAL DIAGNOSES: 1. Small cell carcinoma of the lung. 2. Metastasis to the left frontal area. 3. Deep venous thrombosis, left upper extremity. 4. Superior vena caval syndrome. 5. Hyponatremia. HISTORY OF PRESENT ILLNESS: The patient is a 60-year-old white female, came in the hospital with swelling in her face for about 3 weeks. It was thought originally that she might have angioneurotic edema. She had been treated as an outpatient by other physicians for this with very limited success. She seemed to get some response to some epinephrine as an outpatient on one occasion. But came in the hospital and had massive swelling. Her usual body weight is around 125 pounds and her weight was up to 189 pounds. She did not have any itching with this so we did not further workup and it was noted that she did have a new spider angioma on her chest. Chest x-ray showed fullness in the left hilar area and pulmonary nodule in the left upper lobe. CT scan revealed a mass in the right hilar area as well as the pulmonary nodule. CT scan of the head showed a 1.1 cm lesion in the left frontal lobe. The patient has superior vena caval syndrome. Our initial treatment for angioneurotic edema was unsuccessful other than that the steroids probably did help the superior vena caval syndrome. We did start her on Lasix. She did become somewhat hypokalemic even today potassium is a little low at 3.1. She has been getting supplemental potassium. She has lost down to 155 pounds. A PICC line was placed in her left arm. Unfortunately, she developed a DVT there plus superficial clots. The PICC line was removed and a saline lock was started. She is feeling better. Consultations were made with Dr. Houston Lyon retail pharmacy technician and Dr. Ann Dawkins inspector multifocal lens/oncologist. Also, Dr. John Orellana radiation oncologist. The patient has had radiation therapy and chemotherapy. She had more swelling after the chemotherapy, as was to be expected. We feel that now the superior vena caval syndrome is improving, due to her therapies. We feel like we can discharge her home now. She was having trouble swallowing, initially, but is doing much better at this time. We will send her home on Xarelto 15 mg p.o. b.i.d. for 21 days and then changed over to 20 mg daily after that. She will be on potassium 20 mEq p.o. b.i.d. She is to see Dr. Dawkins in her office this Sunday. Dr. Bean said she could check a potassium level at that time. I will give her Vernon 10 #30 of these 1 every 6 hours p.r.n. pain. It should be noted that I did do some complement checks on her initially thinking that she might have angioneurotic edema and they were all normal. The patient has improved tremendously over the last couple of days. Much better today. She said her swallowing is better. She had trouble breathing, initially, and that is why we kept her in the hospital and did the therapy here. I will see her back in my office in a week. I asked her about her regular physician as I had not seen her as a physician prior to this hospitalization and, apparently, she does not see another physician regularly. She has one that she calls upon when she needs to but says she will be glad to come see me back in the office initially. Most of her care is going to be done by the oncologists. PHYSICAL EXAMINATION: Vital Signs: Stable. HEENT: She is normocephalic. Extraocular movements intact. ERA. Throat clear. Her swelling has decreased considerably. Lungs: Clear to auscultation and percussion without rhonchi, rales, or wheezes. Heart: Regular rate rhythm without murmurs, gallops, or friction rubs. Abdomen: Soft. Active bowel sounds. No organomegaly or tenderness. Neurological: Cranial nerves 2-12 intact grossly. Sensory and motor intact. Reflexes 1+ all. DISCHARGE INSTRUCTIONS: We will have to monitor the DVT in her left arm in the future but at this time she has been started on Lovenox and now will be changed over to Xarelto. cc: Shahid Hernadez Jr, MD
--- NOTE | 2016-06-14 16:30 | CONSULTATION ---
DATE OF CONSULTATION: 06/07/2016 REQUESTING PHYSICIAN: Ann Dawkins. REASON FOR CONSULTATION: Small cell lung cancer with SVC syndrome. HISTORY OF PRESENT ILLNESS: Ms. Pro is a 60-year-old female who presented with swelling of the face and neck. CT scan on 06/04/2016 revealed an irregular mass in the left upper lobe measuring 1.7 x 2.4 cm in size as well as markedly enlarged mediastinal hilar lymph nodes with a circumferential compression and narrowing of the right pulmonary artery. 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 MRI of the brain on 06/06/2016 revealed a 1.1 cm ring-enhancing lesion in the white matter of the left frontal lobe with mild surrounding edema compatible with a metastatic lesion. No other evidence of metastasis was seen. I have been consulted for consideration of radiation therapy concurrent with chemotherapy. She will be starting chemotherapy today. PAST MEDICAL HISTORY: Headaches, seasonal allergies, insomnia. PAST SURGICAL HISTORY: Tonsillectomy and hysterectomy. ALLERGIES: No known drug allergies. MEDICATIONS: Per her chart. FAMILY HISTORY: None significant. SOCIAL HISTORY: The patient has a history of tobacco use. REVIEW OF SYSTEMS: Patient has shortness of breath per the history of present illness. PHYSICAL EXAM: Vitals: Per the hospital record. General: This is a well developed, well nourished, female, in no acute distress. Eyes: The sclerae are anicteric. Heart: Regular rate and rhythm. Lungs: Clear to auscultation bilaterally. Abdomen: Soft and nontender. Extremities: Reveal no clubbing, cyanosis, or edema. ENT: There is facial swelling with jugular venous distention bilaterally. Lymphatic: There is no palpable lymphadenopathy. Neurological: She is alert and oriented with no gross motor or sensory deficits. ASSESSMENT/PLAN: In summary, Ms. Pro has metastatic small cell carcinoma. I agree with palliative radiation therapy to the chest. At some point in time, she will need whole brain radiation as well. But I think it is prudent that we start with chemo-radiation until her superior vena cava is under control and then will discuss whole brain radiation. She has been scheduled for simulation. We will get started with treatment just as soon as possible. cc: MD Shahid Odonnell Jr, MD
== END 2016-06-13 10:40 | disposition home or self-care (01) ==
LOC: EDIPHOLD → 4N 13:28 → 3N 06-07 14:59
PROVIDERS: ADMIT Emergency Medicine; ATTEND Emergency Medicine
PROC: [UNRECOGNIZED PROCEDURE] (2016-06-05 10:20)